=== PATIENT | male | born 1950 | race Caucasian/White ===

== ENCOUNTER → 2024-06-23 | Outpatient (CLI) | payer MEDICARE, OTHER ==
[2024-06-23 13:54] LABS: African American GFR (CKD) >90 (>60 ml/min/1.73 sqM); Blood Urea Nitrogen 12 mg/dL (9-20); Non-African American GFR(CKD) >90 (>60 ml/min/1.73 sqM)
--- NOTE | 2024-06-23 14:37 | CT ---
EXAMINATION TYPE: CT angio chest CT DLP: 871 mGycm, Automated exposure control for dose reduction was used. DATE OF EXAM: 06/23/2024 2:27 PM COMPARISON: None CLINICAL INDICATION:Male, 74 years old with history of I71.20 thoracic aortic aneurysm; aneurysm TECHNIQUE/CONTRAST: CTA scan of the thorax is performed without and with IV Contrast, patient injected with 100 mL of Iso kerri 370. 3D reconstructed images are created on an independent workstation and reviewed.. FINDINGS: Lungs/Pleura: No evidence of focal consolidation, pleural effusion or pneumothorax. Lingular solid 4. 8 mm pulmonary nodule (series 5, image 29). Airway: Large airways are patent. Heart: The heart is moderately enlarged for size. No pericardial effusion. Moderate three-vessel orly nary calcifications. Vasculature: Conventional three-vessel aortic arch. The aortic root demonstrates aneurysmal dilatatio n measuring up to 4.6 cm. The ascending thoracic aorta measures up to 3.7 cm. The descending thoracic aorta measures up to 2.8 cm. No evidence for aortic dissection or intramural hematoma identified. Mi ld atherosclerotic calcification of the origins of the celiac axis, SMA, bilateral renal arteries. Th e main pulmonary arteries are prominent measuring up to 3.2 cm in diameter. No evidence of filling de fect to suggest pulmonary embolism. Mediastinum: No evidence of adenopathy. Musculoskeletal: No acute osseous abnormalities. DISH of the thoracic spine. Soft Tissues: Unremarkable. Lower neck: Multinodular goiter identified with largest nodule measures up to 2.2 cm within the right thyroid lobe. Additional macrocalcifications within both lobes. Upper Abdomen: Cholelithiasis with 2 large gallstones identified measuring up to 1.6 cm. The gallblad shelbie is contracted. No biliary duct dilatation. IMPRESSION: 1. 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 2. Lingular 4.8 mm pulmonary nodule. In a low-risk patient, no follow-up is recommended. In a high-ri sk patient consider options CT chest in 12 months. 3. Multinodular goiter with largest visualized nodule measuring up to 2.2 cm. Consider further evalua tion with thyroid ultrasound if not previously performed. 4. Cardiomegaly. 5. Cholelithiasis. [facility], , 06/23/2024 2:35 PM
== END | disposition home or self-care (01) ==
LOC: RADCTMAIN 12:49
PROVIDERS: ATTEND Internal Medicine Interventional Cardiology
DX: Q25.43 Congenital aneurysm of aorta (principal); I71.20 Thoracic aortic aneurysm, without rupture, unspecified; R91.1 Solitary pulmonary nodule; E04.2 Nontoxic multinodular goiter; I51.7 Cardiomegaly; K80.20 Calculus of gallbladder without cholecystitis without obstruction
CPT/HCPCS: 82565; 84520; 71275; 36415; Q9967